=== PATIENT | female | born 1955 | race Caucasian/White ===

== ENCOUNTER 2020-12-20 11:11 | Emergency (ER) | payer MEDICAID ==
--- NOTE | 2020-12-20 11:17 | EDM.PDOC ---
ED HPI GENERAL MEDICAL PROBLEM - General Stated Complaint: NECK PAIN Time Seen by Provider: 12/20/20 11:17 Source of Information: Reports: Patient History Limitations: Reports: No Limitations - History of Present Illness INITIAL COMMENTS - FREE TEXT/NARRATIVE: 65-year-old female who reports beginning on 12/15/2020, she began to have some stiffness in her neck with some pain along the left posterior neck. It was worse with movement and with palpation. It stayed at mild level until right at 2:30 AM when she was awakened with more severe pain in her neck but also in her left upper back. It was spasm-like pain worse with any movement of her neck to the right movement of her left shoulder back. She rated the pain as a 10/10 and rates it at that level now. She did take some ibuprofen earlier and it seemed to help with the pain. She has had no difficulty breathing. There is no increase in the pain with difficulty breathing. She has no chest pain or heaviness. She has no left arm numbness or weakness. There is no jaw pain. No nausea or vomiting. No cough or pneumonia breathing. No fevers or chills. No trauma. No known injury. No known inciting event. There are no other associated signs or sympto ms. There are no other modifying factors. 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 Left Neck Pain Score (Numeric/FACES): 10 - Related Data Allergies Allergy/AdvReac Type Severity Reaction Status Date / Time No Known Allergies Allergy Verified 12/27/12 14:39 Home Meds: Home Meds Alendronate [Fosamax] 10 mg PO ASDIRECTED 05/18/13 [History] Atropine/Diphenoxylate [Lomotil] 1 tab PO TID PRN #8 tablet 05/18/13 [Rx] Ciprofloxacin [Ciprofloxacin HCl] 500 mg PO BID #10 tab 05/18/13 [Rx] FLUoxetine HCl [Prozac] 20 mg PO DAILY 05/18/13 [History] Furosemide [Lasix] 40 mg PO DAILY 05/18/13 [History] Loperamide HCl [Imodium A-D] 2 mg PO ASDIRECTED PRN 05/18/13 [History] traMADol [Ultram] 50 mg PO ASDIRECTED PRN 05/18/13 [History] Orphenadrine [Norflex] 100 mg PO BID PRN #14 tab 12/20/20 [Rx] methylPREDNISolone [Medrol Dose Pack] 4 mg PO ASDIRECTED #1 dospk 12/20/20 [Rx] Past Medical History Musculoskeletal History: Reports: Other (See Below) (Peripheral edema) Psychiatric History: Reports: Anxiety, Depression - Past Surgical History Female Surgical History: Reports: Section, Hysterectomy Neurological Surgical History: Reports: Vertebroplasty Social & Family History - Tobacco Use Tobacco Use Status *Q: Current Every Day Tobacco User - Alcohol Use Alcohol Use History: No - Living Situation & Occupation Occupation: Employed ED ROS GENERAL - Review of Systems Review Of Systems: See Below Constitutional: Denies: Fever, Chills HEENT: Reports: Dental Pain, Other (No jaw pain). Denies: Throat Pain Respiratory: Denies: Shortness of Breath, Cough Cardiovascular: Denies: Chest Pain, Lightheadedness, Palpitations, Syncope GI/Abdominal: Denies: Abdominal Pain, Nausea, Vomiting : Denies: Dysuria, Frequency Musculoskeletal: Reports: Neck Pain. Denies: Shoulder Pain, Hand Pain Skin: Denies: Rash, Erythema Neurological: Denies: Dizziness, Headache, Weakness Hematologic/Lymphatic: Denies: Easy Bleeding, Easy Bruising ED EXAM, GENERAL - Physical Exam Exam: See Below Exam Limited By: No Limitations General Appearance: Alert, Moderate Distress (Appears in some pain.), Obese Eye Exam: Bilateral Eye: EOMI, Normal Inspection, PERRL Ears: Normal External Exam, Hearing Grossly Normal Ear Exam: Bilateral Ear: Auricle Normal Nose: Normal Inspection, Normal Mucosa, No Blood Throat/Mouth: Normal Inspection, Normal Oropharynx, Normal Voice, No Airway Compromise Head: Atraumatic, Normocephalic Neck: Supple, Limited Range of Motion, Tender Lateral (Tender left lateral area with muscle spasm) Respiratory/Chest: No Respiratory Distress (.), Lungs Clear, Normal Breath Sounds, No Accessory Muscle Use, Chest Non-Tender Cardiovascular: Normal Peripheral Pulses, Regular Rate, Rhythm, No Murmur Peripheral Pulses: 2+: Radial (L), Radial (R) GI/Abdominal: Normal Bowel Sounds, Soft, Non-Tender, No Mass Back Exam: Full Range of Motion, Muscle Spasm, Paraspinal Tenderness (In the left mid upper back) Extremities: Normal Inspection, Normal Range of Motion, Non-Tender, No Pedal Edema, Normal Capillary Refill Neurological: Alert, Oriented, CN II-XII Intact, Normal Cognition, No Motor/Sensory Deficits Psychiatric: Normal Affect, Normal Mood Skin Exam: Warm, Dry, Intact, Normal Color, No Rash Course - Vital Signs Last Recorded V/S: Last Vital Signs Temp 37.4 C 12/20/20 11:11 Pulse 67 12/20/20 11:11 Resp 20 12/20/20 11:11 BP 135/68 12/20/20 11:11 Pulse Ox 99 12/20/20 11:11 - Orders/Labs/Meds Meds: Medications Discontinued Medications Generic Name Dose Route Start Last Admin Trade Name Freq PRN Reason Stop Dose Admin Ketorolac Tromethamine 30 mg 12/20/20 11:40 12/20/20 11:49 Ketorolac 30 Mg/Ml Sdv IM 12/20/20 11:41 30 mg ONETIME ONE Administration - Re-Assessments/Exams Free Text/Narrative Re-Assessment/Exam: 12/20/20 11:35: Patient with neck and left upper back pain and spasm. It is reproducible with movement and with palpation. There is no arm weakness. This appears to be either a cervical disc problem or an acute myofascial pain. I don't see any evidence of a cardiac problem or any other problems a serious nature. I also did not see anything that would require radiographic evaluation at this point. I will have the patient take ibuprofen and Tylenol for pain. I will also provide a prescription for Norflex the pain and I will give her a Medrol Dosepak. She was given Toradol 30 mg IM in the emergency department. She was also encouraged to follow up with her primary provider next week if her symptoms are persisting as she may need further outpatient workup. Precautions and reasons for return to the emergency department were discussed with the patient while she was in the emergency department there were detailed in the patient's discharge instructions. Departure - Departure Time of Disposition: 11:45 Disposition: Home, Self-Care 01 Condition: Good Clinical Impression: Myofascial pain on left side Neck muscle strain Qualifiers: Encounter type: initial encounter Qualified Code(s): S16.1XXA - Strain of muscle, fascia and tendon at neck level, initial encounter - Discharge Information Prescriptions: methylPREDNISolone [Medrol Dose Pack] 4 mg PO ASDIRECTED #1 dospk Orphenadrine [Norflex] 100 mg PO BID PRN #14 tab PRN Reason: Muscle pain or muscle spasm Instructions: Muscle Strain, [id number], Cervical Sprain, [id number] Referrals: Franko Molina MD [Primary Care Provider] - Forms: ED Return to Work/School Form Additional Instructions: You appear to have either a muscle strain in your neck and upper back or a problem with a disc in your neck. You can take ibuprofen and Tylenol as needed for your pain. Medication as prescribed for the muscle pain and muscle spasm (Norflex 100 mg). I also prescribed a Medrol dosepak for you to take. This medication is an anti-inflammatory medicine and if there is a problem with one of your disc and swelling associated with it, this could help decrease your symptoms. Do gentle stretching of your neck and and upper back. Follow-up with your primary provider this coming week. Back to the emergency department for chest pain, shortness of breath, high fever, arm or leg weakness or any other concerning signs or symptoms. Your prescriptions were sent electronically to the [facility] pharmacy in [place]. Sepsis Event Note (ED) - Focused Exam Vital Signs: Vital Signs Temp Pulse Resp BP Pulse Ox 12/20/20 11:11 37.4 C 67 20 135/68 99
[2020-12-20] MEDS ORDERED: Ketorolac 30 MG/ML SDV IM ONE (11:40)
== END 2020-12-20 12:05 | disposition home or self-care (01) ==
LOC: FB.ED 11:11
DX: S16.1XXA Strain of muscle, fascia and tendon at neck level, initial encounter (principal); M79.18 Myalgia, other site; Z72.0 Tobacco use; Z79.899 Other long term (current) drug therapy; X58.XXXA Exposure to other specified factors, initial encounter
CPT/HCPCS: 96372; 99283; J1885